=== PATIENT | male | born 1990 ===

== ENCOUNTER 2017-02-24 19:40 | Emergency (ER) | payer SELFPAY ==
[2017-02-24 20:20] VITALS: BMI 26.9
[2017-02-24 20:23] VITALS: RESP 18; TEMP 98
--- NOTE | 2017-02-24 21:10 | ED PDOC ---
Arrival/HPI - General Chief Complaint: Flu-like Symptoms Time Seen by Provider: 02/24/17 20:40 Historian: Patient - History of Present Illness Narrative History of Present Illness (Text): 02/24/17 21:01 26yo male with no PMHx who present with complaint of generalized malaise. States he had subjective fever yesterday. Took Nyquil yesterday and slept s/p. denies cough, sore throat, rhinorrhea, abdominal pain, nausea, vomiting, diarrhea, constipation, urinary symptoms, sick contact, any other complaint. Past Medical History - Provider Review Nursing Documentation Reviewed: Yes - Infectious Disease Hx of Infectious Diseases: None - Psychiatric Hx Substance Use: No - Anesthesia Hx Anesthesia: No Family/Social History - Physician Review Nursing Documentation Reviewed: Yes Family/Social History: Unknown Family HX Smoking Status: Never Smoked Hx Alcohol Use: No Hx Substance Use: No Allergies/Home Meds Allergies/Adverse Reactions: Allergies No Known Allergies Allergy (Verified 02/24/17 20:20) Review of Systems - Physician Review All systems were reviewed & negative as marked: Yes - Review of Systems Constitutional: Fatigue Eyes: Normal ENT: Normal Respiratory: Normal Cardiovascular: Normal Gastrointestinal: Normal Genitourinary Male: Normal Musculoskeletal: Normal Skin: Normal Neurological: Normal Endocrine: Normal Hemo/Lymphatic: Normal Psychiatric: Normal Physical Exam Vital Signs Reviewed: Yes Vital Signs Temp Pulse Resp BP Pulse Ox 02/24/17 20:22 98.0 F 66 18 104/72 98 Temperature: Afebrile Blood Pressure: Normal Pulse: Regular Respiratory Rate: Normal Appearance: Positive for: Well-Appearing, Non-Toxic, Comfortable Pain Distress: None Mental Status: Positive for: Alert and Oriented X 3 - Systems Exam Head: Present: Atraumatic, Normocephalic Pupils: Present: PERRL Extroacular Muscles: Present: EOMI Conjunctiva: Present: Normal Mouth: Present: Moist Mucous Membranes Neck: Present: Normal Range of Motion Respiratory/Chest: Present: Clear to Auscultation, Good Air Exchange. No: Respiratory Distress, Accessory Muscle Use Cardiovascular: Present: Regular Rate and Rhythm, Normal S1, S2. No: Murmurs Abdomen: Present: Normal Bowel Sounds. No: Tenderness, Distention, Peritoneal Signs Back: Present: Normal Inspection Upper Extremity: Present: Normal Inspection. No: Cyanosis, Edema Lower Extremity: Present: Normal Inspection. No: Edema Neurological: Present: GCS=15, CN II-XII Intact, Speech Normal Skin: Present: Warm, Dry, Normal Color. No: Rashes Psychiatric: Present: Alert, Oriented x 3, Normal Insight, Normal Concentration Medical Decision Making - Lab Interpretations Lab Results: Lab Results 02/24/17 21:00: Influenza Typ A,B (EIA) Negative for flu a/b - Medication Orders Current Medication Orders: Discontinued Medications Acetaminophen (Tylenol 325mg Tab) 650 mg PO STAT STA Stop: 02/24/17 21:51 Disposition/Present on Arrival - Present on Arrival Any Indicators Present on Arrival: No History of DVT/PE: No History of Uncontrolled Diabetes: No Urinary Catheter: No History of Decub. Ulcer: No History Surgical Site Infection Following: None - Disposition Have Diagnosis and Disposition been Completed?: Yes Diagnosis: Malaise Disposition: HOME/ ROUTINE Disposition Time: 22:00 Patient Plan: Discharge Condition: STABLE Discharge Instructions (ExitCare): Fatigue (ED) Additional Instructions: Drink plenty of fluid and rest Follow up with the clinic Return to ED for any new or worsening symptoms Referrals: [facility] [place] [Outside] - Follow up with primary
[2017-02-24 23:53] VITALS: BP 110/77; PULSE 59; O2SAT 100
== END 2017-02-24 22:40 | disposition home or self-care (01) ==
LOC: ED 19:40 → MERGE 19:40 → ED 22:40
DX: R53.81 Other malaise (principal)